=== PATIENT | male | born 1965 | race Caucasian/White ===

== ENCOUNTER 2017-06-30 12:52 | Day surgery (SDC) | payer BC, MEDICARE ==
[~2017-06-30] VITALS: Ht 177.8 cm; Wt 113.4 kg
[~2017-06-30 12:52] MED LIST: ALEVE220 MG PO; ASPIR 8181 MG PO; FISH OIL1000 MG PO; FUROSEMIDE 40MG40 M1 PO; K-DUR 20MEQ TA20 MEQ PO; LEVOTHYROXIN0.088 MG PO; PRILOSEC20 MG PO; VITAMIN B-1100 MG PO
[2017-06-30 12:57] VITALS: BP 161/107
[2017-06-30 13:55] VITALS: BP 161/107
[2017-06-30 13:57] VITALS: BP 178/86
--- NOTE | 2017-06-30 14:10 | Procedure Note ---
Procedure detail Date of procedure: 06/30/17 Anesthesiologist: Alvaro Xiong M.D. Complications: None Pre-procedure diagnosis: Degenerative disc disease of lumbar spine with lumbar radiculopathy symptoms and post laminectomy syndrome Post-procedure diagnosis: Same Indications for procedure: This patient is a pleasant 51-year-old white male who has an intrathecal morphine pain pump in place. He has degenerative disc disease of lumbar spine with multilevel lumbar spondylosis and facet arthropathy with lumbar post laminectomy syndrome. He is doing well with his pump. He is currently going at 2 milligrams per day.he is scheduled to have spinal cord stimulator placed by Dr. Covington. He does have a normal gait. Motor strength of the lower extremities is 5 over 5. There is no gross sensory deficit. We will refill his pump today and continue him at 2 mg per day of intrathecal morphine sulfate. Procedure detail: Informed consent was obtained and the risk and benefits of the procedure was explained to the patient. The patient was taken to the procedure room. The pump was interrogated. The area over the pump was prepped using ChloraPrep. The pump was accessed with a 22-gauge needle. Approximately 10 mL the pump mixture was withdrawn and discarded. The pump was then refilled with a 20 mL mixture of intrathecal morphine 25 mg per mL. The pump was interrogated and continued at 2 mg per day with PA boluses of 0.3 mg up to 5 times a day with a 2 hour lockout. The patient tolerated the procedure well with no complications. Plan and disposition: We will follow-up with this patient in 3 months at his next pump refill. He is to let us know when he has a spinal cord stimulator placed. If he has any problems or questions he is to call us in the pain clinic. At his next refill we will refill with 20 mL of intrathecal morphine 25 mg per mL. at [id number]
[2017-06-30 14:27] VITALS: BP 165/72
== END 2017-06-30 14:28 | disposition home or self-care (01) ==
LOC: PM 12:52
DX: M51.16 Intervertebral disc disorders with radiculopathy, lumbar region (principal)

== ENCOUNTER → 2017-08-18 | Day surgery (SDC) | payer BC, MEDICARE ==
[~2017-08-18] VITALS: Ht 177.8 cm; Wt 113.0 kg
[2017-08-18 09:51] VITALS: BP 173/80
[2017-08-18 10:05] VITALS: BP 173/80
[2017-08-18 10:07] VITALS: BP 150/56
--- NOTE | 2017-08-18 10:31 | Procedure Note ---
Procedure detail Date of procedure: 08/18/17 Anesthesiologist: Alvaro Xiong M.D. Complications: None Pre-procedure diagnosis: Post laminectomy syndrome lumbar spine with degenerative disc disease of lumbar spine with lumbar radiculopathy symptoms Post-procedure diagnosis: Same Indications for procedure: This patient is a pleasant 51-year-old white male who is doing well with his intrathecal morphine pain pump. We are treating him for postlaminectomy syndrome lumbar spine with lumbar radiculopathy symptoms. He is awaiting spinal cord stimulator placement by Dr. Covington. Other than this is doing very well with his pain symptoms and is very happy with his intrathecal morphine infusion at 2 mg per day. He does have a normal gait. Motor strength of the lower extremities is 5 over 5. There is no gross sensory deficit. We will refill his pump and continue him at 2 mg per day of intrathecal morphine. Procedure detail: Pain pump refill Informed consent was obtained and the risk and benefits of the procedure was explained to the patient. The patient was taken to the procedure room. Under fluoroscopic guidance after prepping the patient with ChloraPrep we accessed the pump with a 22-gauge needle. Approximately 16 mL the pump mixture was withdrawn and discarded. The pump was then refilled with a 20 mL mixture of intrathecal morphine 25 mg per mL. The pump was interrogated and continued at 2 mg per day. PA boluses a 0.3 mg up to 5 times a day with a 2 hour lockout. The patient tolerated the procedure well with no complication. Plan and disposition: We will follow-up with him at his next pump refill. We will see him in about 3-4 months. If he has any problems or questions he is call me back in the pain clinic. at [id number]
[2017-08-18 10:33] VITALS: BP 154/74
[2017-08-18 13:11] LABS: AMPHETAMINES/METAMPHETAMINES NEGATIVE ng/mL (<1000)
[2017-08-22 10:40] LABS: Codeine Negative (Cutoff=100); Hydrocodone Negative (Cutoff=100); Hydromorphone Negative (Cutoff=100); Morphine Positive (.); Opiates Positive (.)
== END ==
LOC: LAB 09:47 → PM 09:47
PROVIDERS: Anesthesiology
DX: M51.16 Intervertebral disc disorders with radiculopathy, lumbar region (principal); M96.1 Postlaminectomy syndrome, not elsewhere classified